=== PATIENT | male | born 1975 | race Two or more races ===

== ENCOUNTER 2020-05-26 09:18 | Emergency (ER) | payer SELFPAY ==
[~2020-05-26] VITALS: Ht 152.4 cm; Wt 53.1 kg
[~2020-05-26 09:18] MED LIST: CEFD300C37 PO; HYDR-3240 PO
[2020-05-26] MEDS ORDERED: MORPHINE SULFATE 4 MG/ML, 1ML ONE (10:18)
[2020-05-26] MEDS ORDERED: SODIUM CHLORIDE FLUSH 10ML SYR IVF ONE (10:30)
[2020-05-26] MEDS ORDERED: MORPHINE SULFATE 4 MG/ML, 1ML IVPush PRN (10:30)
[2020-05-26 10:34] LABS: BASOPHILS # (AUTO) 0.02 x10^3/uL (0-0.1); BASOPHILS % (AUTO) 0 % (0-1); EOSINOPHILS # (AUTO) 0.06 x10^3/uL (0-0.4); EOSINOPHILS % (AUTO) 1 % (1-7); LYMPHOCYTES # (AUTO) 1.18 x10^3/uL (1-3.4); LYMPHOCYTES % (AUTO) 17 % (22-44); MD NO; MEAN CORPUSCULAR HEMOGLOBIN 31.9 pg (27.5-34.5); MEAN CORPUSCULAR HGB CONC 34.1 g/dL (33.2-36.2); MEAN CORPUSCULAR VOLUME 93.5 fL (81-97); MEAN PLATELET VOLUME 8.9 fL (7.4-10.4); MONOCYTES # (AUTO) 0.38 x10^3/uL (0.2-0.8); MONOCYTES % (AUTO) 5 % (2-9); NEUTROPHILS # (AUTO) 5.45 x10^3/uL (1.8-6.8); NEUTROPHILS % (AUTO) 77 % (42-75); PLATELET COUNT 182 x10^3/uL (130-400); RED BLOOD COUNT 4.84 x10^6/uL (4.38-5.82); RED CELL DISTRIBUTION WIDTH 12.9 % (9.4-14.8)
[2020-05-26 10:39] LABS: ALBUMIN 3.7 g/dL (3.4-5.0); ANION GAP 5 mmol/L (5-15); CALCIUM 8.8 mg/dL (8.5-10.1); CHLORIDE 110 mmol/L (98-107); CREATININE 0.59 mg/dL (0.7-1.3)
[2020-05-26] MEDS ORDERED: OMNIPAQUE 350 MG/ML, 100ML BOTTLE ONE (11:27)
[2020-05-26 12:25] VITALS: BP 95/62
== END 2020-05-26 12:28 | disposition home or self-care (01) ==
LOC: ED 12:20
DX: K61.1 Rectal abscess (principal)
CPT/HCPCS: 36415; 72193; 80048; 82040; 85025; 96374; 99285; J2270; Q9967

== ENCOUNTER 2020-07-22 10:44 | Emergency (ER) | payer MEDICAID ==
[~2020-07-22] VITALS: Ht 152.4 cm; Wt 56.0 kg
[2020-07-22] MEDS ORDERED: ONDANSETRON 2MG/ML, 2ML ONE (11:17)
[2020-07-22] MEDS ORDERED: MORPHINE SULFATE 4 MG/ML, 1ML ONE ×2 (11:18→11:54)
[2020-07-22] MEDS: MORPHINE SULFATE 4 MG/ML, 1ML IVPush PRN ×2 (11:20→11:57)
[2020-07-22] MEDS ORDERED: LIDOCAINE-MPF 1%, 5ML INFIL ONE (11:30)
[2020-07-22] MEDS ORDERED: ONDANSETRON 2MG/ML, 2ML IVPush ONE (11:30)
[2020-07-22] MEDS ORDERED: SODIUM CHLORIDE FLUSH 10ML SYR IVF ONE (11:30)
[2020-07-22 11:39] LABS: BASOPHILS # (AUTO) 0.02 x10^3/uL (0-0.1); BASOPHILS % (AUTO) 0 % (0-1); EOSINOPHILS # (AUTO) 0.08 x10^3/uL (0-0.4); EOSINOPHILS % (AUTO) 1 % (1-7); LYMPHOCYTES # (AUTO) 1.92 x10^3/uL (1-3.4); LYMPHOCYTES % (AUTO) 29 % (22-44); MD NO; MEAN CORPUSCULAR HEMOGLOBIN 31.7 pg (27.5-34.5); MEAN CORPUSCULAR HGB CONC 34.3 g/dL (33.2-36.2); MEAN CORPUSCULAR VOLUME 92.3 fL (81-97); MONOCYTES % (AUTO) 6 % (2-9); NEUTROPHILS # (AUTO) 4.19 x10^3/uL (1.8-6.8); NEUTROPHILS % (AUTO) 64 % (42-75); PLATELET COUNT 163 x10^3/uL (130-400); RED BLOOD COUNT 4.99 x10^6/uL (4.38-5.82); RED CELL DISTRIBUTION WIDTH 13.1 % (9.4-14.8)
[2020-07-22] MEDS ORDERED: LIDOCAINE-MPF 1%, 5ML ONE (11:39)
[2020-07-22 11:45] LABS: ALBUMIN 3.7 g/dL (3.4-5.0); ANION GAP 7 mmol/L (5-15); CALCIUM 8.9 mg/dL (8.5-10.1); CHLORIDE 112 mmol/L (98-107); CREATININE 0.76 mg/dL (0.7-1.3)
[2020-07-22 13:10] VITALS: BP 91/64
--- NOTE | 2020-07-22 13:11 | NUR ---
Patient given discharge instructions and they have confirmed that they understand the instructions. Patient ambulatory with steady gait.
== END 2020-07-22 13:12 | disposition home or self-care (01) ==
LOC: ED 13:05
DX: K61.0 Anal abscess (principal); R10.2 Pelvic and perineal pain
CPT/HCPCS: 36415; 46050; 80048; 82040; 85025; 96374; 96375; 96376; 99284; J2270; J2405

== ENCOUNTER 2020-07-24 08:45 | Emergency (ER) | payer MEDICAID ==
[~2020-07-24] VITALS: Ht 147.3 cm; Wt 56.6 kg
[2020-07-24 08:51] VITALS: BP 98/62
--- NOTE | 2020-07-24 09:08 | NUR ---
PT AMBULATORY TO ROOM 35 W/ C/O L CYST TO BUTTOCKS NEAR TESTICLES. PT STATES HE HAD I&D 2 DAYS AGO AND HAD PACKING PLACED AND PT STATES IT FELL OUT WHILE BATHING. PT STATES HE WAS TOLD TO COME BACK TO ED TODAY. PT HAS C/O PAIN TO AREA. FIRMNESS NOTED TO BUTTOCKS. PT RESTING ON GURBARBARA. KANE. PRANAV MCCOY AT BEDSIDE.
== END 2020-07-24 09:26 | disposition home or self-care (01) ==
LOC: ED 09:24
DX: K61.0 Anal abscess (principal); Z48.01 Encounter for change or removal of surgical wound dressing
CPT/HCPCS: 99281